=== PATIENT | male | born 1960 | race African-American/Black ===

== ENCOUNTER 2020-06-13 15:54 | Inpatient (IN) | payer OTHER ==
[2020-06-13] MEDS ORDERED: VANCOMYCIN 1 GM in D5W (PRE-DOCKED) 1,000 MG/250 ML IVPB ONE (18:04)
[2020-06-13 18:08] LABS: BASO % 0.8 % (0-2.0); EOS % 0.8 % (0-4.5); HEMATOCRIT 37.6 % (35.4-49); HEMOGLOBIN 12.6 GM/dL (11.7-16.9); LYMPH % 28.4 % (8-40); MCHC 33.4 g/dl (32.0-35.9); MEAN CELL VOLUME 92.8 fl (80-96); MEAN PLT VOLUME 9.7 fl (7.5-11.1); PLATELET COUNT 259 K/MM3 (134-434); RBC 4.06 M/mm3 (4.00-5.60); RDW 13.9 % (11.9-15.9); WHITE BLOOD COUNT 8.1 K/mm3 (4.0-10.0)
[2020-06-13 18:18] LABS: INR 1.06 (0.83-1.09)
[2020-06-13 18:23] LABS: POTASSIUM 4.8 mmol/L (3.5-5.1)
[2020-06-13 18:26] LABS: CALCIUM 9.3 mg/dL (8.5-10.1)
[2020-06-13 18:27] LABS: ALBUMIN 3.7 g/dl (3.4-5.0); BLOOD UREA NITROGEN 17.6 mg/dL (7-18)
[2020-06-13 18:30] LABS: CREATININE 1.2 mg/dL (0.55-1.3)
[2020-06-13 18:31] LABS: BILIRUBIN,TOTAL 0.6 mg/dL (0.2-1); TOT PROT 7.8 g/dl (6.4-8.2)
[2020-06-13 18:56] LABS: ERYTHROCYTE SEDIMENTATION RATE 23 mm/hr (0-20)
[2020-06-13] MEDS ORDERED: PIPERACILLIN/TAZOB 3.375 GM 3.375 GM/50 ML BAG IVPB ONE (18:56)
[2020-06-13] MEDS ORDERED: KETOROLAC TROMETHAMINE 30 MG/1 ML VIAL ONE (18:56)
[2020-06-13] MEDS: PIPERACILLIN/TAZOB 4.5 GM 4.5 GM in DEXTROSE 5%-WATER 100 ML IVPB ONE ×2 (19:57→22:08)
[2020-06-13] MEDS ORDERED: traMADol HCL 50 MG TABLET ONE (23:42)
[2020-06-14] MEDS: traMADol HCL 50 MG TABLET PO SCH ×3 (00:14→21:18)
[2020-06-14] MEDS: BACLOFEN 10 MG TABLET (FP) PO SCH ×3 (00:15→11:13)
[2020-06-14] MEDS: GABAPENTIN 400 MG CAPSULE PO SCH ×3 (00:15→21:17)
[2020-06-14] MEDS: INSULIN SLIDING SCALE (NOVOLOG) 1 VIAL SQ SCH ×5 (00:15→21:22)
[2020-06-14] MEDS ORDERED: PIPERACILLIN/TAZOB 3.375 GM 3.375 GM/50 ML BAG IVPB ONE (03:38)
[2020-06-14] MEDS: PIPERACILLIN/TAZOB 3.375 GM 3.375 GM in DEXTROSE 5%-WATER - 50 ML IVPB SCH ×4 (03:46→23:05)
[2020-06-14] MEDS ORDERED: traMADol HCL 50 MG TABLET ONE (11:03)
[2020-06-14] MEDS ORDERED: PT OWN MED DRAWER 7, Y5N ONE (11:03)
[2020-06-14] MEDS ORDERED: ENOXAPARIN NA (PORCINE) 40 MG/0.4 ML DISP.SYRIN SQ ONE (11:03)
[2020-06-14] MEDS: ENOXAPARIN NA (PORCINE) 40 MG/0.4 ML DISP.SYRIN SQ SCH (11:13)
[2020-06-14] MEDS: HYDROCHLOROTHIAZIDE 12.5 MG CAPSULE (FP) PO SCH (11:13)
[2020-06-14] MEDS: VALSARTAN 160 MG TABLET PO SCH (11:13)
[2020-06-14] MEDS ORDERED: PIPERACILLIN/TAZOBACTAM 3.375 GM VIAL IVPB ONE (18:33)
[2020-06-14] MEDS ORDERED: DEXTROSE 5%-WATER - 50 ML IVPB ONE (18:33)
[2020-06-14] MEDS ORDERED: traMADol HCL 50 MG TABLET PO ONE (19:14)
[2020-06-14] MEDS ORDERED: GABAPENTIN 400 MG CAPSULE PO ONE (19:15)
[2020-06-14 20:52] VITALS: BMI 38.2
[2020-06-14] MEDS ORDERED: BACLOFEN 10 MG TABLET (FP) PO SCH (21:36)
[2020-06-14] MEDS ORDERED: BACLOFEN 10 MG TABLET (FP) PO ONE (21:46)
[2020-06-15] MEDS ORDERED: PIPERACILLIN/TAZOBACTAM 3.375 GM VIAL IVPB ONE ×3 (01:07→17:20)
[2020-06-15] MEDS ORDERED: DEXTROSE 5%-WATER - 50 ML IVPB ONE ×3 (01:07→17:20)
[2020-06-15] MEDS: PIPERACILLIN/TAZOB 3.375 GM 3.375 GM in DEXTROSE 5%-WATER - 50 ML IVPB SCH ×3 (01:50→18:21)
[2020-06-15] MEDS: INSULIN SLIDING SCALE (NOVOLOG) 1 VIAL SQ SCH ×3 (06:46→17:41)
[2020-06-15 08:37] LABS: HEMOGLOBIN 12.4 GM/dL (11.7-16.9); MCH 30.6 pg (25.7-33.7); MCHC 33.4 g/dl (32.0-35.9); MEAN CELL VOLUME 91.4 fl (80-96); PLATELET COUNT 219 K/MM3 (134-434); RBC 4.04 M/mm3 (4.00-5.60); RDW 13.7 % (11.9-15.9); WHITE BLOOD COUNT 5.2 K/mm3 (4.0-10.0)
[2020-06-15 09:01] LABS: POTASSIUM 3.8 mmol/L (3.5-5.1)
[2020-06-15 09:14] LABS: BLOOD UREA NITROGEN 15.7 mg/dL (7-18); CALCIUM 8.8 mg/dL (8.5-10.1)
[2020-06-15 09:18] LABS: PHOSPHOROUS 3.8 mg/dL (2.5-4.9)
[2020-06-15 09:19] LABS: MAGNESIUM 2.1 mg/dL (1.8-2.4)
[2020-06-15] MEDS ORDERED: PT OWN MED DRAWER 7, Y5N ONE ×2 (09:20→23:20)
[2020-06-15] MEDS: GABAPENTIN 400 MG CAPSULE PO SCH ×2 (10:49→23:35)
[2020-06-15] MEDS: HYDROCHLOROTHIAZIDE 12.5 MG CAPSULE (FP) PO SCH (10:49)
[2020-06-15] MEDS: ENOXAPARIN NA (PORCINE) 40 MG/0.4 ML DISP.SYRIN SQ SCH (10:49)
[2020-06-15] MEDS: VALSARTAN 160 MG TABLET PO SCH (10:49)
[2020-06-15] MEDS: traMADol HCL 50 MG TABLET PO SCH ×2 (10:49→23:34)
[2020-06-15] MEDS: BACLOFEN 10 MG TABLET (FP) PO SCH ×2 (15:51→23:37)
[2020-06-16] MEDS ORDERED: DEXTROSE 5%-WATER - 50 ML IVPB ONE ×3 (03:29→17:37)
[2020-06-16] MEDS ORDERED: PIPERACILLIN/TAZOBACTAM 3.375 GM VIAL IVPB ONE ×3 (03:29→17:37)
[2020-06-16] MEDS: PIPERACILLIN/TAZOB 3.375 GM 3.375 GM in DEXTROSE 5%-WATER - 50 ML IVPB SCH ×3 (03:30→18:12)
[2020-06-16] MEDS ORDERED: VANCOMYCIN 1 GM in D5W (PRE-DOCKED) 1,000 MG/250 ML IVPB ONE ×2 (10:00→15:15)
[2020-06-16] MEDS ORDERED: PT OWN MED DRAWER 7, Y5N ONE ×2 (10:09→15:03)
[2020-06-16] MEDS: HYDROCHLOROTHIAZIDE 12.5 MG CAPSULE (FP) PO SCH (10:15)
[2020-06-16] MEDS: GABAPENTIN 400 MG CAPSULE PO SCH ×2 (10:15→22:08)
[2020-06-16] MEDS: VALSARTAN 160 MG TABLET PO SCH (10:15)
[2020-06-16] MEDS: traMADol HCL 50 MG TABLET PO SCH ×2 (10:16→22:08)
[2020-06-16] MEDS: ENOXAPARIN NA (PORCINE) 40 MG/0.4 ML DISP.SYRIN SQ SCH (10:16)
[2020-06-16 10:34] LABS: HEMATOCRIT 37.8 % (35.4-49); HEMOGLOBIN 12.5 GM/dL (11.7-16.9); MCH 30.3 pg (25.7-33.7); MCHC 33.1 g/dl (32.0-35.9); MEAN CELL VOLUME 91.5 fl (80-96); MEAN PLT VOLUME 9.7 fl (7.5-11.1); PLATELET COUNT 219 K/MM3 (134-434); RBC 4.13 M/mm3 (4.00-5.60); WHITE BLOOD COUNT 5.2 K/mm3 (4.0-10.0)
[2020-06-16] MEDS: BACLOFEN 10 MG TABLET (FP) PO SCH ×3 (11:05→22:08)
[2020-06-17] MEDS ORDERED: PIPERACILLIN/TAZOBACTAM 3.375 GM VIAL IVPB ONE ×3 (01:17→17:55)
[2020-06-17] MEDS ORDERED: DEXTROSE 5%-WATER - 50 ML IVPB ONE ×3 (01:17→17:55)
[2020-06-17] MEDS: PIPERACILLIN/TAZOB 3.375 GM 3.375 GM in DEXTROSE 5%-WATER - 50 ML IVPB SCH ×3 (01:57→18:00)
[2020-06-17] MEDS: BACLOFEN 10 MG TABLET (FP) PO SCH ×3 (07:11→21:52)
[2020-06-17 09:21] LABS: HEMATOCRIT 38.2 % (35.4-49); HEMOGLOBIN 12.8 GM/dL (11.7-16.9); MCH 30.7 pg (25.7-33.7); MCHC 33.4 g/dl (32.0-35.9); MEAN CELL VOLUME 91.8 fl (80-96); MEAN PLT VOLUME 9.4 fl (7.5-11.1); PLATELET COUNT 239 K/MM3 (134-434); RBC 4.16 M/mm3 (4.00-5.60); WHITE BLOOD COUNT 4.9 K/mm3 (4.0-10.0)
[2020-06-17 09:44] LABS: CALCIUM 8.9 mg/dL (8.5-10.1); POTASSIUM 3.9 mmol/L (3.5-5.1)
[2020-06-17 09:45] LABS: BLOOD UREA NITROGEN 14.5 mg/dL (7-18)
[2020-06-17 09:48] LABS: PHOSPHOROUS 3.6 mg/dL (2.5-4.9)
[2020-06-17] MEDS ORDERED: PT OWN MED DRAWER 7, Y5N ONE (10:29)
[2020-06-17] MEDS: ENOXAPARIN NA (PORCINE) 40 MG/0.4 ML DISP.SYRIN SQ SCH (10:33)
[2020-06-17] MEDS: HYDROCHLOROTHIAZIDE 12.5 MG CAPSULE (FP) PO SCH (10:33)
[2020-06-17] MEDS: GABAPENTIN 400 MG CAPSULE PO SCH ×2 (10:33→21:56)
[2020-06-17] MEDS: traMADol HCL 50 MG TABLET PO SCH ×2 (10:33→21:53)
[2020-06-17] MEDS: VALSARTAN 160 MG TABLET PO SCH (10:33)
[2020-06-18] MEDS ORDERED: DEXTROSE 5%-WATER - 50 ML IVPB ONE ×2 (00:40→09:12)
[2020-06-18] MEDS ORDERED: PIPERACILLIN/TAZOBACTAM 3.375 GM VIAL IVPB ONE ×2 (00:40→09:12)
[2020-06-18] MEDS: PIPERACILLIN/TAZOB 3.375 GM 3.375 GM in DEXTROSE 5%-WATER - 50 ML IVPB SCH ×3 (02:21→15:00)
[2020-06-18] MEDS: BACLOFEN 10 MG TABLET (FP) PO SCH ×3 (06:44→21:50)
[2020-06-18] MEDS ORDERED: PT OWN MED DRAWER 7, Y5N ONE (09:12)
[2020-06-18] MEDS: VALSARTAN 160 MG TABLET PO SCH ×2 (13:53→18:04)
[2020-06-18] MEDS: HYDROCHLOROTHIAZIDE 12.5 MG CAPSULE (FP) PO SCH ×2 (13:53→18:06)
[2020-06-18] MEDS: ENOXAPARIN NA (PORCINE) 40 MG/0.4 ML DISP.SYRIN SQ SCH ×2 (15:15→18:06)
[2020-06-18] MEDS: traMADol HCL 50 MG TABLET PO SCH ×2 (18:05→21:50)
[2020-06-18] MEDS: GABAPENTIN 400 MG CAPSULE PO SCH ×2 (18:05→21:50)
[2020-06-19] MEDS: BACLOFEN 10 MG TABLET (FP) PO SCH (05:58)
[2020-06-19] MEDS ORDERED: DEXTROSE 5%-WATER 100 ML IVPB ONE (09:12)
[2020-06-19] MEDS: VALSARTAN 160 MG TABLET PO SCH (09:19)
[2020-06-19] MEDS: traMADol HCL 50 MG TABLET PO SCH (09:19)
[2020-06-19] MEDS: HYDROCHLOROTHIAZIDE 12.5 MG CAPSULE (FP) PO SCH (09:19)
[2020-06-19] MEDS: ENOXAPARIN NA (PORCINE) 40 MG/0.4 ML DISP.SYRIN SQ SCH (09:19)
[2020-06-19] MEDS ORDERED: CEFTRIAXONE 2 GM in DEXTROSE 5%-WATER 2 GM/100 ML BAG IVPB SCH (10:00)
[2020-06-19] MEDS: GABAPENTIN 400 MG CAPSULE PO SCH (10:31)
[2020-06-19 10:48] VITALS: BP 145/73; PULSE 62; TEMP 98
== END 2020-06-19 12:34 | disposition home or self-care (01) | DRG 540 ==
LOC: JER 15:54 → JERBED 19:31 → J5S 06-14 12:19
PROVIDERS: ADMIT Hospitalist; ATTEND Internal Medicine
PROC: 02HV33Z Insertion of Infusion Device into Superior Vena Cava, Percutaneous Approach (ICD-10-PCS; principal; 2020-06-19)
PROC: B518ZZA Fluoroscopy of Superior Vena Cava, Guidance (ICD-10-PCS; 2020-06-19)
DX: M86.8X7 Other osteomyelitis, ankle and foot (principal); L97.518 Non-pressure chronic ulcer of other part of right foot with other specified severity; I10 Essential (primary) hypertension; E78.5 Hyperlipidemia, unspecified; M62.838 Other muscle spasm; R73.03 Prediabetes; G62.9 Polyneuropathy, unspecified; B95.7 Other staphylococcus as the cause of diseases classified elsewhere; F39 Unspecified mood [affective] disorder; M25.551 Pain in right hip; E66.9 Obesity, unspecified; Z68.38 Body mass index [BMI] 38.0-38.9, adult; M19.071 Primary osteoarthritis, right ankle and foot
CPT/HCPCS: 36415; 36569; 73630-TC-RT-FY; 73718-TC-RT; 80048; 80053; 82962; 83036; 83735; 84100; 85025; 85027; 85610; 85651; 86140; 86850; 86900; 86901; 87040; 87070; 87205; 93005; 93010; 99285-25; C9803; J0475; U0003

== ENCOUNTER 2020-09-21 15:13 | Inpatient (IN) | payer OTHER ==
[2020-09-21] MEDS ORDERED: PIPERACILLIN/TAZOB 3.375 GM 3.375 GM in DEXTROSE 5%-WATER - 50 ML IVPB ONE (16:37)
[2020-09-21 18:24] LABS: BASO % 0.3 % (0-2.0); EOS % 0.5 % (0-4.5); HEMATOCRIT 36.5 % (35.4-49); HEMOGLOBIN 12.1 GM/dL (11.7-16.9); LYMPH % 38.9 % (8-40); MCH 30.3 pg (25.7-33.7); MCHC 33.3 g/dl (32.0-35.9); MEAN CELL VOLUME 91.1 fl (80-96); MEAN PLT VOLUME 9.4 fl (7.5-11.1); MONO % 13.5 % (3.8-10.2); NEUT % 46.8 % (42.8-82.8); PLATELET COUNT 197 K/MM3 (134-434)
[2020-09-21 18:33] LABS: INR 0.97 (0.83-1.09); PROTHROMBIN TIME (PATIENT) 11.8 SEC (9.7-13.0)
[2020-09-21 18:39] LABS: ALBUMIN 3.5 g/dl (3.4-5.0); BLOOD UREA NITROGEN 21.4 mg/dL (7-18); CALCIUM 9.3 mg/dL (8.5-10.1)
[2020-09-21] MEDS ORDERED: PIPERACILLIN/TAZOB 3.375 GM 3.375 GM/50 ML BAG IVPB ONE (18:41)
[2020-09-21 18:44] LABS: BILIRUBIN,TOTAL 0.2 mg/dL (0.2-1); CREATININE 1.2 mg/dL (0.55-1.3)
[2020-09-21 18:45] LABS: TOT PROT 7.3 g/dl (6.4-8.2)
[2020-09-21] MEDS ORDERED: WATER IVPB ONE (21:30)
[2020-09-21] MEDS ORDERED: VANCOMYCIN IVPB ONE (21:30)
[2020-09-21] MEDS ORDERED: DEXTROSE 5% IVPB ONE (21:30)
[2020-09-21] MEDS ORDERED: INSULIN (NOVOLOG) ASPART 100 UNITS/ML 10ML VIAL ONE (21:54)
[2020-09-21] MEDS ORDERED: MELATONIN 5 MG TABLETS PO ONE (21:57)
[2020-09-21] MEDS: INSULIN SLIDING SCALE (NOVOLOG) 1 VIAL SQ SCH (22:00)
[2020-09-21 22:37] VITALS: BMI 34.4
[2020-09-21] MEDS ORDERED: PIPERACILLIN/TAZOBACTAM 3.375 GM VIAL IVPB ONE (23:50)
[2020-09-21] MEDS ORDERED: DEXTROSE 5%-WATER - 50 ML IVPB ONE (23:50)
[2020-09-22] MEDS: PIPERACILLIN/TAZOB 3.375 GM 3.375 GM in DEXTROSE 5%-WATER - 50 ML IVPB SCH ×5 (00:56→17:32)
[2020-09-22] MEDS ORDERED: diphenhydrAMINE HCL 25 MG CAPSULE (FP) PO ONE (02:00)
[2020-09-22] MEDS ORDERED: DEXTROSE 5%-WATER - 50 ML IVPB ONE ×3 (04:57→16:30)
[2020-09-22] MEDS ORDERED: PIPERACILLIN/TAZOBACTAM 3.375 GM VIAL IVPB ONE ×3 (04:57→16:29)
[2020-09-22] MEDS: INSULIN SLIDING SCALE (NOVOLOG) 1 VIAL SQ SCH ×4 (06:11→21:05)
[2020-09-22 08:13] LABS: BASO % 0.9 % (0-2.0); EOS % 0.4 % (0-4.5); HEMATOCRIT 34.9 % (35.4-49); HEMOGLOBIN 11.7 GM/dL (11.7-16.9); LYMPH % 43.2 % (8-40); MCH 30.5 pg (25.7-33.7); MCHC 33.6 g/dl (32.0-35.9); MEAN CELL VOLUME 90.7 fl (80-96); MEAN PLT VOLUME 9.3 fl (7.5-11.1); MONO % 16.4 % (3.8-10.2); NEUT % 39.1 % (42.8-82.8); PLATELET COUNT 188 K/MM3 (134-434); RBC 3.85 M/mm3 (4.00-5.60); RDW 13.9 % (11.9-15.9); WHITE BLOOD COUNT 4.4 K/mm3 (4.0-10.0)
[2020-09-22 08:21] LABS: CALCIUM 8.8 mg/dL (8.5-10.1)
[2020-09-22 08:22] LABS: BLOOD UREA NITROGEN 13.1 mg/dL (7-18)
[2020-09-22 08:25] LABS: CREATININE 1.2 mg/dL (0.55-1.3); PHOSPHOROUS 3.4 mg/dL (2.5-4.9); TOT PROT 6.4 g/dl (6.4-8.2)
[2020-09-22 08:29] LABS: BILIRUBIN,TOTAL 0.9 mg/dL (0.2-1)
[2020-09-22] MEDS ORDERED: PT OWN MED DRAWER 7, Y5N ONE ×2 (08:39→21:02)
[2020-09-22] MEDS: ENOXAPARIN NA (PORCINE) 40 MG/0.4 ML DISP.SYRIN SQ SCH (09:09)
[2020-09-22] MEDS ORDERED: VANCOMYCIN 1,750 MG in DEXTROSE 5%-WATER - 500 ML IVPB SCH (09:30)
[2020-09-22] MEDS ORDERED: LORazepam 2 MG/ML SDV VIAL IVPUSH ONE (13:03)
[2020-09-22] MEDS ORDERED: ARIPiprazole 5 MG TABLET ONE (13:14)
[2020-09-22] MEDS: ARIPiprazole 10 MG TABLET PO SCH (13:17)
[2020-09-22] MEDS ORDERED: ACETAMINOPHEN 500 MG TABLET (FP) PO ONE (20:09)
[2020-09-22] MEDS ORDERED: GABAPENTIN 400 MG CAPSULE PO ONE (20:10)
[2020-09-22] MEDS: VANCOMYCIN 1,750 MG in DEXTROSE 5%-WATER - 500 ML IVPB SCH (22:37)
[2020-09-23] MEDS ORDERED: PIPERACILLIN/TAZOBACTAM 3.375 GM VIAL IVPB ONE ×3 (00:57→19:31)
[2020-09-23] MEDS ORDERED: DEXTROSE 5%-WATER - 50 ML IVPB ONE ×3 (00:57→19:31)
[2020-09-23] MEDS: PIPERACILLIN/TAZOB 3.375 GM 3.375 GM in DEXTROSE 5%-WATER - 50 ML IVPB SCH ×3 (01:51→20:29)
[2020-09-23] MEDS ORDERED: ACETAMINOPHEN 325 MG TABLET (FP) PO ONE (05:44)
[2020-09-23] MEDS: INSULIN SLIDING SCALE (NOVOLOG) 1 VIAL SQ SCH ×4 (06:01→22:16)
[2020-09-23] MEDS ORDERED: ARIPiprazole 5 MG TABLET ONE (07:32)
[2020-09-23] MEDS: ARIPiprazole 10 MG TABLET PO SCH ×2 (07:38→09:20)
[2020-09-23] MEDS: VANCOMYCIN 1,750 MG in DEXTROSE 5%-WATER - 500 ML IVPB SCH ×2 (10:13→22:09)
[2020-09-23] MEDS: ENOXAPARIN NA (PORCINE) 40 MG/0.4 ML DISP.SYRIN SQ SCH (10:19)
[2020-09-23] MEDS: ACETAMINOPHEN 500 MG TABLET (FP) PO PRN ×2 (12:26→19:39)
[2020-09-23] MEDS ORDERED: SODIUM CHLORIDE 0.45% 1,000 ML IV SCH (17:15)
[2020-09-23] MEDS ORDERED: PATIENT'S OWN MEDICATION (NON-FORMULARY) (Valsartan/Hydrochlorothiazide [Diovan Hct 320-12 PO SCH (17:15)
[2020-09-23] MEDS: VALSARTAN 160 MG TABLET PO SCH (18:14)
[2020-09-23] MEDS: HYDROCHLOROTHIAZIDE 12.5 MG CAPSULE (FP) PO SCH (18:14)
[2020-09-23] MEDS: GABAPENTIN 400 MG CAPSULE PO SCH (22:08)
[2020-09-23] MEDS: ATORVASTATIN CA 10 MG TABLET (FP) PO SCH (22:09)
[2020-09-24] MEDS ORDERED: PIPERACILLIN/TAZOBACTAM 3.375 GM VIAL IVPB ONE ×3 (00:49→17:25)
[2020-09-24] MEDS ORDERED: DEXTROSE 5%-WATER - 50 ML IVPB ONE ×3 (00:50→17:25)
[2020-09-24] MEDS: PIPERACILLIN/TAZOB 3.375 GM 3.375 GM in DEXTROSE 5%-WATER - 50 ML IVPB SCH ×3 (03:13→17:54)
[2020-09-24] MEDS: INSULIN SLIDING SCALE (NOVOLOG) 1 VIAL SQ SCH ×4 (06:40→22:01)
[2020-09-24] MEDS ORDERED: ARIPiprazole 10 MG TABLET PO SCH (06:45)
[2020-09-24] MEDS ORDERED: ARIPiprazole 5 MG TABLET ONE (06:46)
[2020-09-24] MEDS ORDERED: PT OWN MED DRAWER 7, Y5N ONE ×5 (10:13→21:01)
[2020-09-24] MEDS: HYDROCHLOROTHIAZIDE 12.5 MG CAPSULE (FP) PO SCH (10:27)
[2020-09-24] MEDS: GABAPENTIN 400 MG CAPSULE PO SCH ×3 (10:27→21:43)
[2020-09-24] MEDS: VALSARTAN 160 MG TABLET PO SCH (10:27)
[2020-09-24] MEDS: VANCOMYCIN 1,750 MG in DEXTROSE 5%-WATER - 500 ML IVPB SCH ×2 (10:28→22:27)
[2020-09-24] MEDS: ENOXAPARIN NA (PORCINE) 40 MG/0.4 ML DISP.SYRIN SQ SCH (10:32)
[2020-09-24] MEDS: ACETAMINOPHEN 500 MG TABLET (FP) PO PRN ×2 (14:58→21:43)
[2020-09-24] MEDS: ATORVASTATIN CA 10 MG TABLET (FP) PO SCH (21:43)
[2020-09-25] MEDS ORDERED: DEXTROSE 5%-WATER - 50 ML IVPB ONE ×3 (01:11→17:11)
[2020-09-25] MEDS ORDERED: PIPERACILLIN/TAZOBACTAM 3.375 GM VIAL IVPB ONE ×3 (01:11→17:11)
[2020-09-25] MEDS: PIPERACILLIN/TAZOB 3.375 GM 3.375 GM in DEXTROSE 5%-WATER - 50 ML IVPB SCH ×3 (03:00→17:27)
[2020-09-25] MEDS: INSULIN SLIDING SCALE (NOVOLOG) 1 VIAL SQ SCH ×4 (06:16→22:03)
[2020-09-25] MEDS ORDERED: PT OWN MED DRAWER 7, Y5N ONE ×4 (07:23→20:15)
[2020-09-25] MEDS: ARIPiprazole 10 MG TABLET PO SCH ×2 (07:30→09:07)
[2020-09-25] MEDS: HYDROCHLOROTHIAZIDE 12.5 MG CAPSULE (FP) PO SCH (09:06)
[2020-09-25] MEDS: ENOXAPARIN NA (PORCINE) 40 MG/0.4 ML DISP.SYRIN SQ SCH (09:06)
[2020-09-25] MEDS: VALSARTAN 160 MG TABLET PO SCH (09:06)
[2020-09-25] MEDS: GABAPENTIN 400 MG CAPSULE PO SCH ×2 (09:07→22:03)
[2020-09-25] MEDS: VANCOMYCIN 1,750 MG in DEXTROSE 5%-WATER - 500 ML IVPB SCH ×2 (09:35→21:57)
[2020-09-25] MEDS: ACETAMINOPHEN 500 MG TABLET (FP) PO PRN ×2 (13:59→20:49)
[2020-09-25] MEDS: ATORVASTATIN CA 10 MG TABLET (FP) PO SCH (21:58)
[2020-09-26] MEDS ORDERED: PIPERACILLIN/TAZOBACTAM 3.375 GM VIAL IVPB ONE ×3 (01:07→17:06)
[2020-09-26] MEDS ORDERED: DEXTROSE 5%-WATER - 50 ML IVPB ONE ×3 (01:08→17:06)
[2020-09-26] MEDS: PIPERACILLIN/TAZOB 3.375 GM 3.375 GM in DEXTROSE 5%-WATER - 50 ML IVPB SCH ×3 (01:55→17:15)
[2020-09-26] MEDS: INSULIN SLIDING SCALE (NOVOLOG) 1 VIAL SQ SCH ×4 (07:03→21:06)
[2020-09-26 08:31] LABS: BASO % 0.5 % (0-2.0); EOS % 0.2 % (0-4.5); HEMATOCRIT 35.8 % (35.4-49); HEMOGLOBIN 12.2 GM/dL (11.7-16.9); LYMPH % 36.9 % (8-40); MCH 30.3 pg (25.7-33.7); MEAN CELL VOLUME 89.1 fl (80-96); MEAN PLT VOLUME 8.3 fl (7.5-11.1); MONO % 12.4 % (3.8-10.2); PLATELET COUNT 260 K/MM3 (134-434); RBC 4.01 M/mm3 (4.00-5.60); RDW 13.5 % (11.9-15.9)
[2020-09-26] MEDS ORDERED: ARIPiprazole 5 MG TABLET ONE (09:09)
[2020-09-26] MEDS: ENOXAPARIN NA (PORCINE) 40 MG/0.4 ML DISP.SYRIN SQ SCH (09:13)
[2020-09-26] MEDS: ARIPiprazole 10 MG TABLET PO SCH (09:14)
[2020-09-26] MEDS: VALSARTAN 160 MG TABLET PO SCH (09:15)
[2020-09-26] MEDS: HYDROCHLOROTHIAZIDE 12.5 MG CAPSULE (FP) PO SCH ×2 (09:15→09:19)
[2020-09-26] MEDS: GABAPENTIN 400 MG CAPSULE PO SCH ×2 (09:15→21:05)
[2020-09-26 09:17] LABS: CALCIUM 8.7 mg/dL (8.5-10.1)
[2020-09-26 09:21] LABS: CREATININE 1.4 mg/dL (0.55-1.3)
[2020-09-26] MEDS: VANCOMYCIN 1,750 MG in DEXTROSE 5%-WATER - 500 ML IVPB SCH (11:14)
[2020-09-26] MEDS ORDERED: PT OWN MED DRAWER 7, Y5N ONE ×2 (12:28→23:43)
[2020-09-26] MEDS: VANCOMYCIN/WATER BAGS 1,250 MG/250 ML BAG IVPB SCH (12:57)
[2020-09-26] MEDS: ACETAMINOPHEN 500 MG TABLET (FP) PO PRN (18:50)
[2020-09-26] MEDS: ATORVASTATIN CA 10 MG TABLET (FP) PO SCH (21:05)
[2020-09-27] MEDS: VANCOMYCIN/WATER BAGS 1,250 MG/250 ML BAG IVPB SCH (00:05)
[2020-09-27] MEDS ORDERED: DEXTROSE 5%-WATER - 50 ML IVPB ONE (01:58)
[2020-09-27] MEDS ORDERED: PIPERACILLIN/TAZOBACTAM 3.375 GM VIAL IVPB ONE (01:58)
[2020-09-27] MEDS: PIPERACILLIN/TAZOB 3.375 GM 3.375 GM in DEXTROSE 5%-WATER - 50 ML IVPB SCH (02:21)
[2020-09-27] MEDS: INSULIN SLIDING SCALE (NOVOLOG) 1 VIAL SQ SCH (06:16)
[2020-09-27 07:00] VITALS: BP 117/70; PULSE 67; TEMP 98.3
[2020-09-27 07:24] LABS: BASO % 0.5 % (0-2.0); EOS % 0.2 % (0-4.5); HEMATOCRIT 35.7 % (35.4-49); HEMOGLOBIN 12.2 GM/dL (11.7-16.9); LYMPH % 34.6 % (8-40); MCH 30.3 pg (25.7-33.7); MCHC 34.2 g/dl (32.0-35.9); MEAN CELL VOLUME 88.7 fl (80-96); MONO % 11.1 % (3.8-10.2); NEUT % 53.6 % (42.8-82.8); PLATELET COUNT 253 K/MM3 (134-434); RBC 4.02 M/mm3 (4.00-5.60); RDW 13.8 % (11.9-15.9); WHITE BLOOD COUNT 6.7 K/mm3 (4.0-10.0)
[2020-09-27 07:55] LABS: CREATININE 1.5 mg/dL (0.55-1.3)
[2020-09-27] MEDS ORDERED: ARIPiprazole 5 MG TABLET ONE (08:10)
[2020-09-27] MEDS: ARIPiprazole 10 MG TABLET PO SCH (08:13)
== END 2020-09-27 08:15 | disposition left against medical advice (07) | DRG 638 ==
LOC: JER 15:13 → JERBED 19:09 → J8W 21:21
PROVIDERS: ADMIT Internal Medicine; ATTEND Internal Medicine
DX: E11.69 Type 2 diabetes mellitus with other specified complication (principal); M86.8X7 Other osteomyelitis, ankle and foot; L97.518 Non-pressure chronic ulcer of other part of right foot with other specified severity; L03.115 Cellulitis of right lower limb; E11.621 Type 2 diabetes mellitus with foot ulcer; F25.9 Schizoaffective disorder, unspecified; F31.9 Bipolar disorder, unspecified; E11.40 Type 2 diabetes mellitus with diabetic neuropathy, unspecified; I10 Essential (primary) hypertension; E78.5 Hyperlipidemia, unspecified; J45.909 Unspecified asthma, uncomplicated; E66.9 Obesity, unspecified; Z68.34 Body mass index [BMI] 34.0-34.9, adult; Z96.649 Presence of unspecified artificial hip joint
CPT/HCPCS: 36415; 73630-TC-RT-FY; 73718-TC-RT; 80048; 80053; 82962; 83036; 83605; 83735; 84100; 85025; 85610; 87040; 87070; 87205; 93005; 93010; 97116-GP; 97161-GP; 99285-25; C9803; G0480; U0003; U0005